=== PATIENT | male | born 1955 | race Two or more races ===

== ENCOUNTER 2017-04-23 10:23 | Day surgery (SDC) | payer BC ==
[2017-04-23] VITALS (8 sets, daily range): BP systolic 120–132; BP diastolic 74–82
[~2017-04-23] VITALS: Ht 165.1 cm; Wt 70.3 kg
[2017-04-23] MEDS ORDERED: LOTREL 5-20 MG1 EACH ORAL (10:44)
[2017-04-23] MEDS ORDERED: METFORMIN HCL1000 M3 PO (10:44)
[2017-04-23] MEDS ORDERED: LR 1000ml 1,000 ML IVLG SCH (10:50)
--- NOTE | 2017-04-23 10:55 | Anethesia Preoperative Eval ---
Anesthesia Pre-op PMH/ROS General Date of Evaluation: Apr 23, 2017 Time of Evaluation: 11:56 Anesthesiologist: Luis Alberto ASA Score: ASA 3 Mallampati Score Class I : Soft palate, uvula, fauces, pillars visible Class II: Soft palate, uvula, fauces visible Class III: Soft palate, base of uvula visible Class IV: Only hard plate visible Mallampati Classification: Class II Surgeon: Laila Diagnosis: Abd Pain Surgical Procedure: EGD/Colonoscopy Anesthesia History: none Family History: no anesthesia problems Allergies: Coded Allergies: No Known Allergies (Unverified , 04/23/17) Medications: see eMAR Past Medical History Cardiovascular: Reports: HTN Gastrointestinal/Genitourinary: Reports: other - Prostate CA Endocrine: Reports: DM Hematology/Immune: Reports: other - Prostate CA PSxH Narrative: Cholecystectomy, Prostatectomy, Appendectomy Anesthesia Pre-op Phys. Exam Physician Exam Last Vital Signs Date Time Temp Pulse Resp B/P (MAP) Pulse Ox O2 Delivery O2 Flow Rate FiO2 04/23/17 10:42 98.0 71 19 132/80 99 Room Air Constitutional: NAD Neurologic: CN 2-12 intact Cardiovascular: RRR Respiratory: CTA Gastrointestinal: S/NT/ND Airway Exam Mallampati Score: Class II MO: full ROM: full Teeth: intact Anesthesia Pre-op A/P Risk Assessment & Plan Assessment: ASA 3 Plan: GA Status Change Before Surgery: Ammon Arciniega MD Apr 23, 2017 10:55
--- NOTE | 2017-04-23 10:58 | Immediate Post-Op Evaluation ---
Immediate Post-Op Evalulation Immediate Post-Op Evalulation Procedure: EGDColonoscopy Date of Evaluation: Apr 23, 2017 Time of Evaluation: 12:59 IV Fluids: 800 LR Blood Products: 0 Estimated Blood Loss: 7 Urinary Output: 0 Blood Pressure Systolic: 126 Blood Pressure Diastolic: 77 Pulse Rate: 68 Respiratory Rate: 16 O2 Sat by Pulse Oximetry: 98 Temperature (Fahrenheit): 97.9 Pain Score (1-10): 1 Nausea: No Vomiting: No Complications 0 Patient Status: awake, reacts, patent, none Hydration Status: adequate Ammon Sahu MD Apr 23, 2017 10:58
--- NOTE | 2017-04-23 10:59 | 48 Hour Post Anesthesia Eval ---
Post Anesthesia Evaluation Procedure: EGDColonoscopy Date of Evaluation: Apr 23, 2017 Time of Evaluation: 15:11 Blood Pressure Systolic: 138 0: 86 Pulse Rate: 71 Respiratory Rate: 18 Temperature (Fahrenheit): 98.4 O2 Sat by Pulse Oximetry: 99 Airway: patent Nausea: No Vomiting: No Pain Intensity: 1 Hydration Status: adequate Cardiopulmonary Status: Stable Mental Status/LOC: patient returned to baseline Follow-up Care/Observations: 0 Post-Anesthesia Complications: 0 Follow-up care needed: ready to discharge Ammon Sahu MD Apr 23, 2017 10:59
[2017-04-23] MEDS ORDERED: DiphenhydrAMINE 50mg/ml Inj IVP PRN (11:00)
[2017-04-23] MEDS ORDERED: Midazolam 2mg/2ml Inj IVP PRN (11:00)
[2017-04-23] MEDS ORDERED: Labetalol 5mg/ml 20ml vial IV PRN (11:00)
[2017-04-23] MEDS ORDERED: oxyCODONE HCL/Acetaminophen 5/325mg ORAL PRN (11:00)
[2017-04-23] MEDS ORDERED: Ketorolac 60mg Inj IV PRN (11:00)
[2017-04-23] MEDS ORDERED: Metoclopramide 10mg/2ml Inj IVP PRN (11:00)
[2017-04-23] MEDS ORDERED: LORazepam Inj 2mg/ml 1ml IV PRN (11:00)
[2017-04-23] MEDS ORDERED: Norco 5mg/325mg tab ORAL PRN (11:00)
[2017-04-23] MEDS ORDERED: Atropine Inj 1mg/10ml Syr IV PRN (11:00)
[2017-04-23] MEDS ORDERED: Hydromorphone 0.5mg/0.5ml inj IVP PRN (11:00)
[2017-04-23] MEDS ORDERED: Ketorolac 30mg Inj IV PRN (11:00)
[2017-04-23] MEDS ORDERED: HYDROcodone/Acetamin 7.5/325 tab ORAL PRN (11:00)
[2017-04-23] MEDS ORDERED: fentaNYL 100 mcg/2 mL IV PRN (11:00)
[2017-04-23] MEDS ORDERED: Propofol 200mg/20ml IV ONE (12:00)
[2017-04-23] MEDS ORDERED: Alfentanil 2ml Inj ONE (12:00)
[2017-04-23] MEDS ORDERED: Lidocaine 1% MPF 10mg/ml 5ml ONE (12:00)
[2017-04-23] MEDS ORDERED: LR 1000ml ONE (12:00)
--- NOTE | 2017-04-23 12:09 | Pre-Procedure Note/Attestation ---
Pre-Procedure Note/Attestation Complete Prior to Procedure Planned Procedure: not applicable Procedure Narrative: esophagogastroduodenoscopy and colonoscopy Indications for Procedure Pre-Operative Diagnosis: h/o colon polyps, gerd Attestation I attest that I discussed the nature of the procedure; its benefits; risks and complications; and alternatives (and the risks and benefits of such alternatives ), prior to the procedure, with the patient (or the patient's legal dental sales representative). I attest that, if there was a reasonable possibility of needing a blood transfusion, the patient (or the patient's legal dental sales representative) was given the [facility] standardized written summary, pursuant to the Terry Sunny Blood Safety Act ([place] Health and Safety Code # 1645, as amended). I attest that I re-evaluated the patient just prior to the surgery and that there has been no change in the patient's H&P, except as documented below: MANOLO PAUL Apr 23, 2017 12:09
--- NOTE | 2017-04-23 12:10 | Short Stay Surgery H&P ---
History of Present Illness History of Present Illness Chief Complaint h/o colon polyps, GERD HPI Gray Natarajan is a 62 year old male who was admitted on for Hx Of Colon Polyps Patient History Allergies: Coded Allergies: No Known Allergies (Unverified , 04/23/17) PAST MEDICAL HISTORY: Past Surgeries: Social History: Medication History Scheduled Amlodipine Besylate/Benazepril 5-20 Mg (Lotrel 5-20 Mg Capsule*), 1 CAP ORAL DAILY, (Reported) Metformin HCl (Metformin HCl ER), 1,000 MG PO DAILY, (Reported) Review of Systems Cardiovascular: Reports: no symptoms Respiratory: Reports: no symptoms Skeletal: Reports: no symptoms Gastrointestinal: Reports: no symptoms Genitourinary: Reports: no symptoms Neurologic: Reports: no symptoms Endocrine: Reports: no symptoms Hematologic: Reports: no symptoms Physical Exam Vital Signs Last Vital Signs Date Time Temp Pulse Resp B/P (MAP) Pulse Ox O2 Delivery O2 Flow Rate FiO2 04/23/17 10:42 98.0 71 19 132/80 99 Room Air Skin: normal HENT: normal Heart: normal Lungs: normal Abdomen: normal Extremities: normal Plan Plan of Care esophagogastroduodenoscopy and colonoscopy Final Diagnosis: Attestation Are the patient's medical conditions optimized for surgery? Attestation Response: yes MANOLO PAUL Apr 23, 2017 12:10
--- NOTE | 2017-04-23 12:38 | Endoscopy Procedure Note ---
Endoscopy Procedure Note Indication for Procedure: colon polyps, GERD Procedures Performed: EGD, colonoscopy Operative Findings/Diagnosis: same Specimen: yes Pt Tolerated Procedure Well: Yes Estimated Blood Loss: none Anesthesiologist: scarlet Anesthesia: MAC Implant(s) used?: No 50 yrs or older w/o bx or poly: No 10yrs. F/U not recommended: Yes If not recommended, why?: Above average risk 10 yrs. F/U needed: Yes 18 years or older w/prev. colo: Yes <3yrs. since last colonoscopy: No MANOLO PAUL Apr 23, 2017 12:38
--- NOTE | 2017-04-23 17:02 | Procedure Note ---
DATE OF PROCEDURE: 04/23/2017 SURGEON: Rey Ulloa M.D. REFERRING PHYSICIAN: Shemar Lawrence M.D. PROCEDURE: Upper endoscopy with biopsy and colonoscopy with biopsy. ANESTHESIA: Per Dr. Sahu. INSTRUMENT: Olympus adult flexible upper endoscope and colonoscope. INDICATION: 1. History of colonic polyps. 2. Chronic acid reflux disease. The procedure, risks, benefits, and possible consequences, including hemorrhage, aspiration, perforation and infection, and alternative treatments, were explained to the patient/legal guardian by Dr. Rey Ulloa and the patient/legal guardian understood and accepted these risks. PROCEDURE: After informed consent was obtained and the patient was adequately sedated, Olympus upper endoscope was advanced from the mouth into the second portion of the duodenum and retroflexion was performed in the stomach. The patient has had diffuse gastritis. Random biopsy from antrum and body was obtained to rule out H. pylori infection. Otherwise, the rest of her upper endoscopic examination was grossly within normal limit. At this time, the upper endoscope was retrieved and the patient was turned over for colonoscopy. First, a rectal exam was performed, which was positive for external and internal hemorrhoids. Then, the scope was advanced from the rectum into the cecum documented by the appendiceal orifice, ileocecal valve and right upper quadrant palpation. Quality of prep was good. The patient had one diminutive polyp in the cecum and one in transverse colon, both removed with cold biopsy forceps technique. The rest of the examination was grossly within normal limits. No obvious mass or any other pathology was seen. Retroflexion of rectum showed evidence of large internal hemorrhoids. SUMMARY OF FINDINGS: 1. Diffuse gastritis, status post biopsy. 2. Colonic polyp removed. See above for details. 3. Internal and external hemorrhoids. RECOMMENDATIONS: 1. Follow up biopsy results and treat accordingly. 2. We recommend repeat colonoscopy in 5 years. I want to thank Dr. Shemar Lawrence for this kind referral. Rey Ulloa M.D. DR: LEILA JOB#: [id number] CC: Shemar Lawrence M.D.
== END 2017-04-23 13:00 | disposition home or self-care (01) ==
LOC: GAS 10:23
DX: K21.9 Gastro-esophageal reflux disease without esophagitis (principal); K63.5 Polyp of colon; D12.3 Benign neoplasm of transverse colon; K64.4 Residual hemorrhoidal skin tags; K64.8 Other hemorrhoids; Z79.84 Long term (current) use of oral hypoglycemic drugs; I10 Essential (primary) hypertension; E11.9 Type 2 diabetes mellitus without complications; Z85.46 Personal history of malignant neoplasm of prostate; Z90.49 Acquired absence of other specified parts of digestive tract; Z90.89 Acquired absence of other organs; Z90.79 Acquired absence of other genital organ(s); K29.50 Unspecified chronic gastritis without bleeding
CPT/HCPCS: 43239; 45380; 82962; J0690; J2704; J3490; J7120; 94003; 94150